=== PATIENT | male | born 1975 | race African-American/Black ===

== ENCOUNTER → 2017-04-09 | Outpatient (CLI) | payer SELFPAY ==
--- NOTE | 2017-04-09 15:52 | RADIOLOGY REPORT (SQ) ---
EXAM DESCRIPTION: TOE RIGHT COMPLETED DATE/TIME: 04/09/2017 3:04 pm REASON FOR STUDY: TOE PAIN, RIGHT M79.674 PAIN IN RIGHT TOE(S) COMPARISON: None. NUMBER OF VIEWS: Three views. TECHNIQUE: AP, lateral, and oblique images acquired of the right 5th toe LIMITATIONS: None. FINDINGS: MINERALIZATION: Normal. BONES: No acute fracture or dislocation. No worrisome bone lesions. JOINTS: No effusions. SOFT TISSUES: No soft tissue swelling. No foreign body. OTHER: No other significant finding. IMPRESSION: NEGATIVE STUDY OF THE RIGHT TOE. NO RADIOGRAPHIC EVIDENCE OF ACUTE INJURY. COMMENT: SITE OF TRAUMA/COMPLAINT MARKED/STAMP COMPLETED: YES. TECHNICAL DOCUMENTATION: JOB ID: [id number] [employer]- All Rights Reserved
== END ==
LOC: RAD 14:42
PROVIDERS: ATTEND Emergency Medicine
DX: M79.674 Pain in right toe(s) (principal)

== ENCOUNTER 2017-05-23 14:27 | Emergency (ER) | payer SELFPAY ==
[2017-05-23 14:35] VITALS: BP 148/107
[2017-05-23] MEDS ORDERED: OXYCODONE-ACETAMINOPHEN 5-325 MG TABLET PO ONE (14:50)
[2017-05-23] MEDS ORDERED: AMOXICILLIN TRIHYDRATE 500 MG CAPSULE PO ONE (14:50)
[2017-05-23] MEDS ORDERED: IBUPROFEN 400 MG TABLET PO ONE (14:50)
--- NOTE | 2017-05-23 14:55 | ER Document Report ---
ED Oral Problem - General Chief Complaint: Toothache Stated Complaint: TOOTH ACHE Time Seen by Provider: 05/23/17 14:40 Notes: Patient complaining of pain to the left upper molar. Pain began this morning. Throbbing and radiating up into his face. Was having some sensitivity to hot and cold foods and drinks recently and knew that he was probably developing a cavity or dental problem but has not had time to go to the dentist. Denies any other symptoms at this time. Denies any fever. Pain is rated as a 5/5 on a numeric pain scale. No other associated signs or symptoms. Pain is described as throbbing and shooting TRAVEL OUTSIDE OF THE [place] IN LAST 30 DAYS: No - HPI Patient complains to provider of: Toothache Onset: This morning Quality of pain: Sharp Severity: Severe Pain Level: 5 Context: denies: Fractured tooth, Recent antibiotic use, Recent dental extractions Associated symptoms: None - Related Data Allergies/Adverse Reactions: No Known Allergies Allergy (Unverified 05/23/17 14:29) Past Medical History - General Information source: Patient - Social History Smoking Status: Current Every Day Smoker Cigarette use (# per day): Yes Frequency of alcohol use: None Drug Abuse: None Lives with: Family Family History: Reviewed & Not Pertinent Patient has suicidal ideation: No Patient has homicidal ideation: No Renal/ Medical History: Denies: Hx Peritoneal Dialysis Review of Systems - Review of Systems Constitutional: denies: Fever, Malaise, Weakness EENT: Dental problem. denies: Eye pain, Ear pain Cardiovascular: denies: Chest pain, Palpitations Respiratory: denies: Cough, Hurts to breathe Neurological/Psychological: Dementia, Headaches. denies: Confusion, Numbness Physical Exam - Vital signs Vitals: Temp Pulse Resp BP Pulse Ox 98.6 F 74 16 148/107 H 99 05/23/17 14:34 05/23/17 14:34 05/23/17 14:34 05/23/17 14:34 05/23/17 14:34 Interpretation: Normal - General Notes: Uncomfortable appearing but otherwise appears well. No significant distress - HEENT Head: Normocephalic, Atraumatic Eyes: Normal Pupils: PERRL Tympanic membrane: Normal Mucous membranes: Normal Teeth diagram: 1 - Tenderness to palpation of tooth there is no obvious abscess per Pharynx: Normal Neck: Normal - Respiratory Respiratory status: No respiratory distress Chest status: Nontender Breath sounds: Normal Chest palpation: Normal - Cardiovascular Rhythm: Regular Heart sounds: Normal auscultation Murmur: No - Extremities General upper extremity: Normal inspection, Nontender, Normal color, Normal ROM , Normal temperature General lower extremity: Normal inspection, Nontender, Normal color, Normal ROM , Normal temperature, Normal weight bearing. No: Jacqueline's sign - Neurological Neuro grossly intact: Yes Cognition: Normal Orientation: AAOx4 [place] Coma Scale Eye Opening: Spontaneous [place] Coma Scale Verbal: Oriented [place] Coma Scale Motor: Obeys Commands [place] Coma Scale Total: 15 Speech: Normal Motor strength normal: LUE, RUE, LLE, RLE Sensory: Normal Course - Re-evaluation Re-evalutation: 05/23/17 14:54 Will start on antibiotics and pain medication. A pharmacy check was performed and patient has no history of narcotic prescriptions. Patient was given the risks and benefits regarding narcotic medication and consented to narcotic treatment. Will continue on antibiotics. Strict warning signs given that if symptoms get worse he should return for repeat evaluation as there can be rare occurrences that dental infections can actually cause infections to the face or brain. Patient verbalized understanding of instructions. Annual Giving Manager/ transportation is present so that he can take medication now. First doses were given here in the emergency department and prescriptions given for the same as an outpatient. - Vital Signs Vital signs: Temp Pulse Resp BP Pulse Ox 98.6 F 74 16 148/107 H 99 05/23/17 14:34 05/23/17 14:34 05/23/17 14:34 05/23/17 14:34 05/23/17 14:34 Discharge - Discharge Clinical Impression: Dental caries Condition: Good Disposition: HOME, SELF-CARE Instructions: Oral Narcotic Medication ([facility]), Toothache ([facility]) Additional Instructions: Symptoms get worse, headache gets worse, fever, worsening symptoms and return to the emergency department for repeat evaluation please. Follow-up with the dentist soon as possible to get definitive care of the tooth. Without definitive care of these symptoms will return Prescriptions: Amoxicillin 1 tab PO TID #30 tab Hydrocodone/Acetaminophen [Temple 5-325 mg Tablet] 1 tab PO TID PRN 3 Days #9 tablet PRN Reason: Ibuprofen [Motrin 800 mg Tablet] 800 mg PO Q8H PRN #30 tab PRN Reason:
== END 2017-05-23 15:01 | disposition home or self-care (01) ==
LOC: ER 14:27
DX: K02.9 Dental caries, unspecified (principal); K08.89 Other specified disorders of teeth and supporting structures; F03.90 Unspecified dementia, unspecified severity, without behavioral disturbance, psychotic disturbance, mood disturbance, and anxiety; R51 Headache; F17.210 Nicotine dependence, cigarettes, uncomplicated
CPT/HCPCS: 99282; J3490

== ENCOUNTER 2020-01-17 17:17 | Emergency (ER) | payer OTHER, BC ==
[2020-01-17 17:23] VITALS: BP 135/87
[2020-01-17] MEDS ORDERED: DIPH/PERTUSS(ACELL)/TETANUS VAC/PF 0.5 ML SYR (>=10YO) IM ONE (17:46)
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
== END 2020-01-17 18:16 | disposition home or self-care (01) ==
LOC: ER 17:17
DX: S90.511A Abrasion, right ankle, initial encounter (principal); V28.0XXA Motorcycle driver injured in noncollision transport accident in nontraffic accident, initial encounter; F17.200 Nicotine dependence, unspecified, uncomplicated; F12.10 Cannabis abuse, uncomplicated
CPT/HCPCS: 90471; 90715; 99283